=== PATIENT | male | born 1980 | race Caucasian/White ===

== ENCOUNTER 2016-08-01 06:39 | Emergency (ER) | payer OTHER ==
[2016-08-01 06:51] VITALS: TEMP 97.6; BMI 25.0
--- NOTE | 2016-08-01 07:32 | PDOC ---
History of Present Illness - General Chief Complaint: Abscess Boil Stated Complaint: ABSCESS/BUTTOCKS Time Seen by Provider: 08/01/16 07:13 History Source: Patient Exam Limitations: No Limitations - History of Present Illness Initial Comments: 08/01/16 07:23 35-year-old male presents to the emergency room for evaluation of right buttock abscess for the past 4 days. Patient states initially started as a pimple and now has become more red and tender. 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 Timing/Duration: getting worse Severity: mild Associated Symptoms: reports: other Past History - Past Medical History Allergies/Adverse Reactions: Allergies Allergy/AdvReac Type Severity Reaction Status Date / Time No Known Allergies Allergy Verified 08/01/16 06:44 Home Medications: Ambulatory Orders NK [No Known Home Medication] 08/01/16 Anemia: No Asthma: No Cancer: No Cardiac Disorders: No CVA: No COPD: No CHF: No Dementia: No Diabetes: No GI Disorders: No Disorders: No HTN: No Hypercholesterolemia: No Liver Disease: No Suicide Attempt (Hx): No Seizures: No Thyroid Disease: No - Immunization History Immunization Up to Date: Yes - Psycho/Social/Smoking Cessation Hx Anxiety: No Suicidal Ideation: No Smoking History: Current every day smoker Have you smoked in the past 12 months: Yes Number of Cigarettes Smoked Daily: 10 Information on smoking cessation initiated: No 'Breaking Loose' booklet given: 06/02/15 Hx Alcohol Use: Yes (occasional) Drug/Substance Use Hx: No Substance Use Type: None Hx Substance Use Treatment: No Patient Lives Alone: No Lives with/in: spouse/SO Review of Systems - Review of Systems Able to Perform ROS?: Yes Constitutional: No: Symptoms Reported HEENTM: No: Symptoms Reported Respiratory: No: Symptoms reported Cardiac (ROS): No: Symptoms Reported ABD/GI: No: Symptoms Reported Musculoskeletal: No: Symptoms Reported Integumentary: Yes: Erythema, Lumps Neurological: No: Symptoms reported Endocrine: No: Symptoms Reported Hematologic/Lymphatic: No: Symptoms Reported *Physical Exam - Vital Signs Last Vital Signs Temp Pulse Resp BP Pulse Ox 97.6 F 75 18 125/68 100 08/01/16 06:49 08/01/16 06:49 08/01/16 06:49 08/01/16 06:49 08/01/16 06:49 - Physical Exam General Appearance: Yes: Nourished, Appropriately Dressed. No: Apparent Distress Respiratory/Chest: positive: Lungs Clear, Normal Breath Sounds. negative: Respiratory Distress, Accessory Muscle Use Cardiovascular: positive: Regular Rhythm, Regular Rate. negative: Murmur Integumentary: positive: Erythema (with semi-firm area measuring 2 x 3 cm with whitish center without palpable fluctuance) Neurologic: positive: Motor Strength 5/5 (ambulatory) Medical Decision Making - Medical Decision Making 08/01/16 07:26 Patient with right buttock abscess 4 days. On exam patient had no palpable fluctuance or increased warmth. Unable to kiko or perform an I and D . Will order patient on Bactrim and given a prescription for Motrin 600 as per his request . Patient recommended to apply warm soaks. *DC/Admit/Observation/Transfer Diagnosis at time of Disposition: Abscess of right buttock - Discharge Dispostion Disposition: HOME Condition at time of disposition: Good - Patient Instructions Printed Discharge Instructions: DI for Skin Abscess Additional Instructions: I recommend that he apply hot soaks to the affected area 4 times a day for at least 15 minutes. Take antibiotics as prescribed until completed and may take Motrin as needed for discomfort. Do not apply of the topicals or manipulate area. If area begins to drain may cover with a sterile gauze.
[2016-08-01 09:46] VITALS: BP 112/85; PULSE 85
== END 2016-08-01 09:46 | disposition home or self-care (01) ==
LOC: JER 06:39
DX: L02.31 Cutaneous abscess of buttock (principal)
CPT/HCPCS: 99281-25

== ENCOUNTER 2019-09-22 10:18 | Emergency (ER) | payer OTHER ==
--- NOTE | 2019-09-22 10:32 | PDOC ---
Rapid Medical Evaluation Time Seen by Provider: 09/22/19 10:27 Medical Evaluation: Allergies Allergy/AdvReac Type Severity Reaction Status Date / Time No Known Allergies Allergy Verified 09/22/19 10:29 09/22/19 10:31 CC: rt knee swelling and pain with flexion, denies injury or bite/wound to area Exam: notes effusion to rt knee, no increased redness or warmth Plan: xray Discharge Disposition - Diagnosis Knee pain - Referrals - Patient Instructions - Post Discharge Activity
--- NOTE | 2019-09-22 10:57 | PDOC ---
History of Present Illness - General Chief Complaint: Pain, Acute Stated Complaint: RT KNEE INJURY Time Seen by Provider: 09/22/19 10:27 History Source: Patient, Old Records Exam Limitations: No Limitations - History of Present Illness Initial Comments: 09/22/19 10:50 HISTORY OF PRESENT ILLNESS: Patient presents today with c/o right knee pain that started 09/16 while working kneeling on his knees.Reports feeling a stinging in lateral posterior aspect of knee when standing. Reports feeling stiff and swollen and wanted to come in today to see if something was wrong.Reports de creased ability to walk and does not take any other medication except Methadone daily. Denies recent trauma,numbness, tingling.Admits to work that requires frequent kneeling. No recent travel or sick contacts. PAST MEDICAL HISTORY: Reports going to Methadone clinic daily, denies any other history. SURGICAL HISTORY: Denies ALLERGIES: No known drug allergies REVIEW OF SYSTEMS General/Constitutional: Denies fever or chills. Denies weakness, weight change. HEENT: Denies change in vision. Denies ear pain or discharge. Denies sore throat. Cardiovascular: Denies chest pain or shortness of breath. Respiratory: Denies cough, wheezing, or hemoptysis. Gastrointestinal: Denies nausea, vomiting, diarrhea or constipation. Denies rectal bleeding. Genitourinary: Denies dysuria, frequency, or change in urination. Musculoskeletal: Reports joint pain and stiffness to right knee, innability to walk on leg without discomfort Skin: Denies rash or easy bruising. Neurologic: Denies headache, vertigo, loss of consciousness, or loss of sensation. Psychiatric: Denies Endocrine: Denies increased thirst. Denies abnormal weight change. Hematologic/Lymphatic: Denies anemia, easy bleeding, or history of blood clots. Allergic/Immunologic: Denies hives or skin allergy. Denies latex allergy. PHYSICAL EXAM General Appearance: Well-appearing, appropriately dressed. No apparent distress, no intoxication. Vascular Pulses: Dorsalis-Pedis (R): 2+, Dorsalis-Pedis (L): 2+ Musculoskeletal/Extremities: Normal inspection. Normal capillary refill. Pelvis Stable. No CVA tenderness. No tenderness to extremities, pedal edema, swelling, erythema or deformity.Neurovascularly intact. Decreased ROM secondary to pain. Integumentary: Appropriate color, dry, warm. No cyanosis, erythema, jaundice or rash Neurologic: Motor strength 5/5. 09/22/19 10:59 Past History - Medical History Allergies/Adverse Reactions: Allergies Allergy/AdvReac Type Severity Reaction Status Date / Time No Known Allergies Allergy Verified 09/22/19 10:29 Home Medications: Ambulatory Orders Diclofenac Sodium [Voltaren] 100 gm TP TID PRN #1 tube 09/22/19 Anemia: No Asthma: No Cancer: No Cardiac Disorders: No CVA: No COPD: No CHF: No Dementia: No Diabetes: No GI Disorders: No Disorders: No HTN: No Hypercholesterolemia: No Liver Disease: No Seizures: No Thyroid Disease: No - Surgical History Abdominal Surgery: No Appendectomy: No Cardiac Surgery: No Cholecystectomy: No Lung Surgery: No Neurologic Surgery: No Orthopedic Surgery: No - Immunization History Td Vaccination: No TDAP Vaccination: No Immunization Up to Date: No - Psycho-Social/Smoking History Smoking History: Current every day smoker Have you smoked in the past 12 months: No Number of Cigarettes Smoked Daily: 10 Information on smoking cessation initiated: No 'Breaking Loose' booklet given: 06/02/15 - Substance Abuse Hx (Audit-C & DAST Scrn) How often the patient has a drink containing alcohol: Never Score: In Men: 4 or > Positive; In Women: 3 or > Positive: 0 Screen Result (Pos requires Nsg. Audit-10AR): Negative In the last yr the pt used illegal drug/Rx for NonMed reason: No Score: Yes response is considered Positive: 0 Screen Result (Positive result requires Nsg. DAST-10): Negative *Physical Exam - Vital Signs Last Vital Signs Temp Pulse Resp BP Pulse Ox 98.9 F 55 L 20 107/66 100 09/22/19 10:29 09/22/19 10:29 09/22/19 10:29 09/22/19 10:29 09/22/19 10:29 Medical Decision Making - Medical Decision Making 09/22/19 11:26 A/P: 38 y/o male with atraumatic right knee pain for 5 days. No laxity in right knee No erythema, numbness, tingling Lateral suprapatella swelling noted Grimacing noted with ROM Passive range of motion attains greater than 90 degrees. Full extension achieved passively. Limping gait Motrin 600mg po now xray- no acute fractures or dislocations noted drew wrap Discharged with orthopedic follow up Discharge - Discharge Information Problems reviewed: Yes Clinical Impression/Diagnosis: Knee pain Qualifiers: Chronicity: acute Laterality: right Qualified Code(s): M25.561 - Pain in right knee Condition: Stable Disposition: HOME - Admission No - Additional Discharge Information Prescriptions: Diclofenac Sodium [Voltaren] 100 gm TP TID PRN #1 tube PRN Reason: Pain - Follow up/Referral Referrals: Grant Allen DO [Staff Physician] - - Patient Discharge Instructions Additional Instructions: Place ice to affected area no more than 20 minutes at a time.Wait at least 20 minutes before reapplying. Apply Volaran gel as prescribed Apply drew wrap to affected limb Follow up with orthopedics : you have been provided with a number to call. Return to ER for new or worsening symptoms. - Post Discharge Activity Work/Back to School Note: Back to Work
[2019-09-22] MEDS ORDERED: IBUPROFEN 600 MG TABLET (FP) PO ONE ×2 (10:58→11:00)
[2019-09-22 11:05] VITALS: BP 107/66; PULSE 55; TEMP 98.9; BMI 25.1
== END 2019-09-22 11:39 | disposition home or self-care (01) ==
LOC: JERFT 10:18
DX: M25.561 Pain in right knee (principal)
CPT/HCPCS: 73562-TC-RT-FY; 99283-25

== ENCOUNTER 2019-09-29 05:12 | Emergency (ER) | payer OTHER ==
[2019-09-29 05:20] VITALS: BMI 23.6
[2019-09-29] MEDS ORDERED: ACETAMINOPHEN 500 MG TABLET (FP) PO ONE (06:30)
--- NOTE | 2019-09-29 06:32 | PDOC ---
Attending Attestation - Resident Resident Name: Dedra Garcia - ED Attending Attestation I have performed the following: I have examined & evaluated the patient, The case was reviewed & discussed with the resident, I agree w/resident's findings & plan, Exceptions are as noted - HPI HPI: 09/29/19 06:33 38 M with atraumatic R knee pain. Was seen here 1 week ago for same problem. Had XR that was negative. Reports worsening pain and swelling since then. No fevers. No falls or injuries. - Physicial Exam PE: 09/29/19 06:34 See resident exam - Medical Decision Making 09/29/19 06:34 38 M with R knee pain. Large effusion on exam. No fevers to suggest septic arthritis. - Knee arthrocentesis performed, synovial fluid sent to lab Discharge - Discharge Information Problems reviewed: Yes Clinical Impression/Diagnosis: Knee pain, right Qualifiers: Chronicity: acute Qualified Code(s): M25.561 - Pain in right knee Condition: Stable Disposition: HOME - Additional Discharge Information Prescriptions: Naproxen [Naprosyn -] 500 mg PO BID PRN #14 tablet PRN Reason: Pain Level 6-10 - Follow up/Referral Referrals: Ema Cali NP [Primary Care Provider] - Grant Allen DO [Staff Physician] - - Patient Discharge Instructions Patient Printed Discharge Instructions: DI for Knee Pain Additional Instructions: You came into the emergency department knee pain. We took fluid from your knee which was consistent with inflammation. You received your methadone dose while you were here. You can take [id number]-orp-hdvorbf aleve, motrin, or tylenol for pain. Follow the instructions on the medication bottle. We have referred you to an orthopedist. Call and make an appointment as soon as possible to further evaluate your knee. Your workup is not complete until you do so. Immediate medical attention is required if you experience: any focal numbness or weakness, coldness in your limb, or any new or concerning symptoms. If you think you are having an emergency, call for emergency medical services or present to the emergency department right away. - Post Discharge Activity Procedures - Arthrocentesis Indication: Crystals (Gout/Psuedogout, Inflammation, Reduce Pain Arthrocentesis Site: right: knee Flexion: 20-30 degree Betadine Prep: Yes Fluid Color: Yellow Anesthesia: 1% Lidocaine Needle Size (guage): 18g Complications: No
[2019-09-29 06:57] LABS: BASO % 0.4 % (0-2.0); EOS % 3.6 % (0-4.5); HEMATOCRIT 39.5 % (35.4-49); HEMOGLOBIN 12.4 GM/dL (11.7-16.9); LYMPH % 19.1 % (8-40); MCH 23.6 pg (25.7-33.7); MCHC 31.5 g/dl (32.0-35.9); MEAN CELL VOLUME 74.7 fl (80-96); MEAN PLT VOLUME 8.1 fl (7.5-11.1); NEUT % 69.9 % (42.8-82.8); PLATELET COUNT 284 K/MM3 (134-434); RBC 5.28 M/mm3 (4.00-5.60); RDW 14.7 % (11.9-15.9); WHITE BLOOD COUNT 11.6 K/mm3 (4.0-10.0)
--- NOTE | 2019-09-29 07:03 | PDOC ---
History of Present Illness - General Chief Complaint: Chronic pain Stated Complaint: R KNEE SHIPLEY Time Seen by Provider: 09/29/19 05:29 History Source: Patient Exam Limitations: No Limitations - History of Present Illness Initial Comments: 09/29/19 06:59 38y M with PMH of heroin use (inhalation) on methadone presenting to the ER with complaints of R knee pain. Pt has been having this pain for around 1 week, was seen here in the ER with negative xrays. Pt states he has been taking ibuprofen without relief, icing and icy hot does not help. He states that due to the pain he missed going to the methadone clinic for the past 3 days. He states he cannot walk or bend the knee. Denies fever, pain in the back, numbness, weakness, fevers, chest pain, sob, injuries. He states the pain and swelling developed after was kneeling and working on the deck. No penetrative injuries. Allergies: nkda Past History - Medical History Allergies/Adverse Reactions: Allergies Allergy/AdvReac Type Severity Reaction Status Date / Time No Known Allergies Allergy Verified 09/29/19 05:20 Home Medications: Ambulatory Orders Diclofenac Sodium [Voltaren] 100 gm TP TID PRN #1 tube 09/22/19 Anemia: No Asthma: No Cancer: No Cardiac Disorders: No CVA: No COPD: No CHF: No Dementia: No Diabetes: No GI Disorders: No Disorders: No HTN: No Hypercholesterolemia: No Liver Disease: No Seizures: No Thyroid Disease: No - Surgical History Abdominal Surgery: No Appendectomy: No Cardiac Surgery: No Cholecystectomy: No Lung Surgery: No Neurologic Surgery: No Orthopedic Surgery: No - Immunization History Td Vaccination: No TDAP Vaccination: No Immunization Up to Date: No - Psycho-Social/Smoking History Smoking History: Current every day smoker Have you smoked in the past 12 months: Yes Number of Cigarettes Smoked Daily: 5 Information on smoking cessation initiated: No 'Breaking Loose' booklet given: 06/02/15 - Substance Abuse Hx (Audit-C & DAST Scrn) How often the patient has a drink containing alcohol: Monthly or less Number of drinks the patient has on a typical day: 1 or 2 How often the patient has six or more drinks on one occasion: Never Score: In Men: 4 or > Positive; In Women: 3 or > Positive: 1 Screen Result (Pos requires Nsg. Audit-10AR): Negative In the last yr the pt used illegal drug/Rx for NonMed reason: No Score: Yes response is considered Positive: 0 Screen Result (Positive result requires Nsg. DAST-10): Negative Review of Systems - Review of Systems Constitutional: No: Symptoms Reported HEENTM: No: Symptoms Reported Respiratory: No: Symptoms reported Cardiac (ROS): No: Symptoms Reported ABD/GI: No: Symptoms Reported : No: Symptoms Reported Musculoskeletal: Yes: See HPI Integumentary: Yes: See HPI Neurological: No: Symptoms reported *Physical Exam - Vital Signs Last Vital Signs Temp Pulse Resp BP Pulse Ox 98.2 F 55 L 20 120/71 100 09/29/19 05:14 09/29/19 05:14 09/29/19 05:14 09/29/19 05:14 09/29/19 05:14 - Physical Exam General Appearance: Yes: Nourished, Appropriately Dressed. No: Apparent Distress HEENT: positive: EOMI, BRAD Neck: positive: Trachea midline, Supple Respiratory/Chest: positive: Lungs Clear, Normal Breath Sounds Cardiovascular: positive: Regular Rhythm, Regular Rate, S1, S2. negative: Edema, JVD, Murmur Vascular Pulses: Dorsalis-Pedis (R): 2+, Doralis-Pedis (L): 2+ Gastrointestinal/Abdominal: positive: Normal Bowel Sounds, Soft. negative: Tender Musculoskeletal: negative: CVA Tenderness Extremity: positive: Normal Capillary Refill, Swelling (R knee swelling, no erythema or induration, warmth. limited active ROM of knee, able to extend, limited with flexion. ) Integumentary: positive: Normal Color, Dry, Warm. negative: Erythema Neurologic: positive: granular operator II-XII NML intact, Fully Oriented, Alert, Normal Mood/Affect, Normal Response, Motor Strength 5/5 Procedures - Arthrocentesis Indication: Reduce Pain Arthrocentesis Site: right: knee Flexion: 20-30 degree Betadine Prep: Yes Sterile Dressing Applied: No Dry Tap: No Fluid Color: Yellow Anesthesia: 1% Lidocaine Needle Size (guage): 18g Complications: No ED Treatment Course - LABORATORY CBC & Chemistry Diagram: 09/29/19 06:30 09/29/19 06:30 - Medications Given in the ED: ED Medications Discontinued Medications Generic Name Dose Route Start Last Admin Trade Name Freq PRN Reason Stop Dose Admin Acetaminophen 975 mg 09/29/19 06:30 09/29/19 06:41 Tylenol - PO 09/29/19 06:31 Not Given ONCE ONE Medical Decision Making - Medical Decision Making 09/29/19 07:04 38y M presenting with R knee swelling and pain. vitals wnl R knee swelling, no erythema or warmth. do not suspect septic joint. will tap and analyze aspirate. will draw basic labs. refer to procedure note. 70cc of yellow, thick fluid aspirated. pt refusing tylenol stating he is on methadone and needs methadone. will sign out pending labs and synovial aspirate. lab called to make sure they have received sample, stated they will check. 09/29/19 07:06 Discharge - Discharge Information Problems reviewed: Yes Clinical Impression/Diagnosis: Knee pain, right Qualifiers: Chronicity: acute Qualified Code(s): M25.561 - Pain in right knee Condition: Fair - Follow up/Referral Referrals: Ema Cali CHIEF HYDROELECTRIC STATION OPERATOR [Primary Care Provider] - - Patient Discharge Instructions - Post Discharge Activity
[2019-09-29 07:23] LABS: ALBUMIN 3.5 g/dl (3.4-5.0); BILIRUBIN,TOTAL 0.3 mg/dL (0.2-1); BLOOD UREA NITROGEN 10.8 mg/dL (7-18); CALCIUM 8.5 mg/dL (8.5-10.1); CREATININE 0.6 mg/dL (0.55-1.3); POTASSIUM 4.3 mmol/L (3.5-5.1)
[2019-09-29] MEDS ORDERED: KETOROLAC TROMETHAMINE 30 MG/1 ML VIAL IM ONE ×2 (07:32→08:49)
--- NOTE | 2019-09-29 07:37 | PDOC ---
*Physical Exam - Vital Signs Last Vital Signs Temp Pulse Resp BP Pulse Ox 98.2 F 55 L 20 120/71 100 09/29/19 05:14 09/29/19 05:14 09/29/19 05:14 09/29/19 05:14 09/29/19 05:14 ED Treatment Course - LABORATORY CBC & Chemistry Diagram: 09/29/19 06:30 09/29/19 06:30 - ADDITIONAL ORDERS Additional order review: Laboratory Results 09/29/19 06:30 Sodium 138 Potassium 4.3 Chloride 104 Carbon Dioxide 26 Anion Gap 8 BUN 10.8 Creatinine 0.6 Est GFR (CKD-EPI)AfAm 147.82 Est GFR (CKD-EPI)NonAf 127.55 Random Glucose 102 Calcium 8.5 Total Bilirubin 0.3 AST 12 L ALT 21 Alkaline Phosphatase 98 C-Reactive Protein 3.9 H Total Protein 7.0 Albumin 3.5 - Medications Given in the ED: ED Medications Discontinued Medications Generic Name Dose Route Start Last Admin Trade Name Freq PRN Reason Stop Dose Admin Acetaminophen 975 mg 09/29/19 06:30 09/29/19 06:41 Tylenol - PO 09/29/19 06:31 Not Given ONCE ONE Medical Decision Making - Medical Decision Making Patient signed out by Dr. Garcia 38y M with PMH of heroin use (inhalation) on methadone presenting to the ER with complaints of R knee pain. CMP Sodium 138 mmol/L (136-145) 09/29/19 06:30 Potassium 4.3 mmol/L (3.5-5.1) 09/29/19 06:30 Chloride 104 mmol/L (98-107) 09/29/19 06:30 Carbon Dioxide 26 mmol/L (21-32) 09/29/19 06:30 Anion Gap 8 MMOL/L (8-16) 09/29/19 06:30 BUN 10.8 mg/dL (7-18) 09/29/19 06:30 Creatinine 0.6 mg/dL (0.55-1.3) 09/29/19 06:30 Est GFR (CKD-EPI)AfAm 147.82 09/29/19 06:30 Est GFR (CKD-EPI)NonAf 127.55 09/29/19 06:30 Random Glucose 102 mg/dL (74-106) 09/29/19 06:30 Calcium 8.5 mg/dL (8.5-10.1) 09/29/19 06:30 Total Bilirubin 0.3 mg/dL (0.2-1) 09/29/19 06:30 AST 12 U/L (15-37) L 09/29/19 06:30 ALT 21 U/L (13-61) 09/29/19 06:30 Alkaline Phosphatase 98 U/L (45-117) 09/29/19 06:30 C-Reactive Protein 3.9 MG/DL (0.00-0.3) H 09/29/19 06:30 Total Protein 7.0 g/dl (6.4-8.2) 09/29/19 06:30 Albumin 3.5 g/dl (3.4-5.0) 09/29/19 06:30 Electrolytes unremarkable Normal Cr CRP elevated Pending synovial fluid analysis Patient refused toradol IM, stating he wants methadone Willing to wait for labs, but may decide to leave 09/29/19 07:36 CBC WBC 11.6 K/mm3 (4.0-10.0) H 09/29/19 06:30 RBC 5.28 M/mm3 (4.00-5.60) 09/29/19 06:30 Hgb 12.4 GM/dL (11.7-16.9) 09/29/19 06:30 Hct 39.5 % (35.4-49) 09/29/19 06:30 MCV 74.7 fl (80-96) L 09/29/19 06:30 MCH 23.6 pg (25.7-33.7) L 09/29/19 06:30 MCHC 31.5 g/dl (32.0-35.9) L 09/29/19 06:30 RDW 14.7 % (11.9-15.9) 09/29/19 06:30 Plt Count 284 K/MM3 (134-434) D 09/29/19 06:30 MPV 8.1 fl (7.5-11.1) D 09/29/19 06:30 Absolute Neuts (auto) 8.1 K/mm3 (1.5-8.0) H 09/29/19 06:30 Neutrophils % 69.9 % (42.8-82.8) D 09/29/19 06:30 Lymphocytes % 19.1 % (8-40) D 09/29/19 06:30 Monocytes % 7.0 % (3.8-10.2) 09/29/19 06:30 Eosinophils % 3.6 % (0-4.5) 09/29/19 06:30 Basophils % 0.4 % (0-2.0) 09/29/19 06:30 Nucleated RBC % 0 % (0-0) 09/29/19 06:30 Mild leukocytosis No anemia 09/29/19 08:12 per lab, synovial fluid ready around 10am The patient understands the risks and complications that may result from the refusal of medical care and admission which includes and permanent disability. The patient has the mental capacity of understanding the risks of refusing care and is capable of making an informed decision. Signed AMA form 09/29/19 08:49 Patient changed his mind about leaving AMA Now requesting toradol, ordered Call to patient's methadone clinic, No answer; Left a voicemail 09/29/19 09:08 Called [facility] outpatient detox, Confirmed patient's dose of methadone, 90mg Made staff aware that patient would be provided today's dose here Ordered 09/29/19 09:13 Laboratory Tests 09/29/19 09/29/19 06:36 06:36 Fluid Source Right knee Fluid WBC 58653 Fluid RBC 2862 Fluid Neutrophils Pending Synovial Crystals Pending Synovial fluid analysis consistent with inflammatory process Low suspicion for septic joint 09/29/19 10:19 Able to ambulate with antalgic gait Crutches given for pain Ortho referral Naprosyn sent to pharmacy Return precautions Patient discharged Discharge - Discharge Information Problems reviewed: Yes Clinical Impression/Diagnosis: Knee pain, right Qualifiers: Chronicity: acute Qualified Code(s): M25.561 - Pain in right knee Condition: Stable Disposition: HOME - Additional Discharge Information Prescriptions: Naproxen [Naprosyn -] 500 mg PO BID PRN #14 tablet PRN Reason: Pain Level 6-10 - Follow up/Referral Referrals: Ema Cali PAD TUFTER [Primary Care Provider] - Grant Allen DO [Staff Physician] - - Patient Discharge Instructions Patient Printed Discharge Instructions: DI for Knee Pain Additional Instructions: You came into the emergency department knee pain. We took fluid from your knee which was consistent with inflammation. You received your methadone dose while you were here. You can take [id number]-[id number]-lzdkyee aleve, motrin, or tylenol for pain. Follow the instructions on the medication bottle. We have referred you to an orthopedist. Call and make an appointment as soon as possible to further evaluate your knee. Your workup is not complete until you do so. Immediate medical attention is required if you experience: any focal numbness or weakness, coldness in your limb, or any new or concerning symptoms. If you think you are having an emergency, call for emergency medical services or present to the emergency department right away. - Post Discharge Activity
[2019-09-29] MEDS ORDERED: KETOROLAC TROMETHAMINE 30 MG/1 ML VIAL ONE (08:47)
[2019-09-29 09:01] LABS: ERYTHROCYTE SEDIMENTATION RATE 19 mm/hr (0-10)
[2019-09-29] MEDS ORDERED: METHADONE HCL 10 MG TABLET (FOR DETOX USE ONLY) PO ONE (09:13)
[2019-09-29] MEDS ORDERED: METHADONE HCL 10 MG TABLET ONE (09:18)
[2019-09-29] MEDS ORDERED: METHADONE HCL 40 MG DISPERSABLE TABLET ONE (09:19)
[2019-09-29 09:37] LABS: BF WBC & OTHER NUCLEATED CELLS 24908 /mm3
[2019-09-29 10:32] VITALS: BP 121/72; PULSE 77; TEMP 98
[2019-09-29 13:14] LABS: BODY FLUID MACROPHAGES 2 %; BODY FLUID MONOCYTE 2 %
== END 2019-09-29 10:45 | disposition home or self-care (01) ==
LOC: JER 05:12
PROC: 3E023GC Introduction of Other Therapeutic Substance into Muscle, Percutaneous Approach (ICD-10-PCS; principal; 2019-09-29)
PROC: 0S9C3ZZ Drainage of Right Knee Joint, Percutaneous Approach (ICD-10-PCS; principal; 2019-09-29)
DX: M25.561 Pain in right knee (principal)
CPT/HCPCS: 36415; 80053; 85025; 85651; 86140; 87070; 87075; 87205; 89060; 99284-25

== ENCOUNTER 2019-10-03 13:43 | Emergency (ER) | payer OTHER ==
[2019-10-03 13:51] VITALS: BP 107/65; PULSE 95; TEMP 98.3; BMI 23.6
[2019-10-03] MEDS ORDERED: KETOROLAC TROMETHAMINE 30 MG/1 ML VIAL IVPUSH ONE (14:15)
--- NOTE | 2019-10-03 14:27 | PDOC ---
History of Present Illness - General Chief Complaint: Pain Stated Complaint: KNEE PAIN Time Seen by Provider: 10/03/19 13:59 History Source: Patient Exam Limitations: No Limitations - History of Present Illness Initial Comments: 10/03/19 14:22 38-year-old male past medical history hep C heroin abuse on methadone presenting to the ED complaining of right knee pain. Patient was seen here on 2 separate visits where he was worked up for septic joint. Arthrocentesis was performed on his right knee results show a white blood cell count of 25,000 with a negative Gram stain without crystals. Patient returns today for worsening inflammation and pain of the right knee. Patient states that symptoms have been getting progressively worse since September 16 patient has not followed up with orthopedics as directed but has been taking NSAIDs with only minimal relief. Patient now complains of decreased ROM secondary to pain as well as new onset of swelling in the right ankle. pt otherwise denies: fevers, chills, syncope, lightheadedness, dizziness, headaches, neck pain, chest pain, shortness of breath, palpitations, back pain, abdominal pain, nausea, vomiting, diarrhea, constipation. Past History - Medical History Allergies/Adverse Reactions: Allergies Allergy/AdvReac Type Severity Reaction Status Date / Time No Known Allergies Allergy Verified 10/03/19 13:48 Home Medications: Ambulatory Orders Diclofenac Sodium [Voltaren] 100 gm TP TID PRN #1 tube 09/22/19 Naproxen [Naprosyn -] 500 mg PO BID PRN #14 tablet 09/29/19 Clindamycin [Cleocin -] 300 mg PO Q6HPO #28 capsule 10/03/19 Anemia: No Asthma: No Cancer: No Cardiac Disorders: No CVA: No COPD: No CHF: No Dementia: No Diabetes: No GI Disorders: No Disorders: No HTN: No Hypercholesterolemia: No Liver Disease: No Seizures: No Thyroid Disease: No - Surgical History Abdominal Surgery: No Appendectomy: No Cardiac Surgery: No Cholecystectomy: No Lung Surgery: No Neurologic Surgery: No Orthopedic Surgery: No - Immunization History Td Vaccination: No TDAP Vaccination: No Immunization Up to Date: No - Psycho-Social/Smoking History Smoking History: Never smoked Have you smoked in the past 12 months: Yes Number of Cigarettes Smoked Daily: 5 'Breaking Loose' booklet given: 06/02/15 - Substance Abuse Hx (Audit-C & DAST Scrn) How often the patient has a drink containing alcohol: 2-4 times / month How often the patient has six or more drinks on one occasion: Less than monthly Score: In Men: 4 or > Positive; In Women: 3 or > Positive: 3 Screen Result (Pos requires Nsg. Audit-10AR): Negative In the last yr the pt used illegal drug/Rx for NonMed reason: No Score: Yes response is considered Positive: 0 Screen Result (Positive result requires Nsg. DAST-10): Negative Review of Systems - Review of Systems Constitutional: No: Chills, Fever HEENTM: No: Eye Pain Respiratory: No: Shortness of Breath Cardiac (ROS): No: Chest Pain ABD/GI: No: Abdominal Distended : No: Dysuria Musculoskeletal: Yes: Joint Pain, Muscle Pain. No: Gout, Muscle Weakness Integumentary: Yes: Symptoms Reported (edema) Neurological: No: Headache, Numbness *Physical Exam - Vital Signs Last Vital Signs Temp Pulse Resp BP Pulse Ox 98.3 F 95 H 20 107/65 100 10/03/19 13:47 10/03/19 13:47 10/03/19 13:47 10/03/19 13:47 10/03/19 13:47 - Physical Exam 10/03/19 14:25 Gen: AAOx 3, no acute distress, comfortable, no signs of respiratory distress HENT: atraumatic, normocephalic with no laceration or contusion. Nasal mucosa without erythema. Oropharynx without erythema or exudates. Mucous membranes moist. EYES: PERRL, EOM intact, conjunctiva pink NECK: supple; trachea midline; no JVD, no lymphadenopathy, or thyromegaly CV: RRR no murmurs, gallops, or rubs. CHEST: CTA b/l no wheezing, rales or rhonchi ABD: +BS/ND. no TTP; soft, no rebound, no guarding EXTREMITY: no cyanosis or erythema. 2+ dorsalis pedis, posterior tibial, and radial pulse. No pedal edema; no calf swelling or tenderness SKIN: no rash, warm and dry, no diaphoresis HEME: no purpura or ecchymosis NEURO: normal speech, CN II-XII intact, sensation intact, normal gait, no cerebellar deficits MS: 5/5 strength in all extremities, FROM intact in all extremities except RLE RLE: swelling with warmth no erythema but ttp to suprapatella region on the knee, unable to ROM knee 2/2 pain, 2+ distal pulses, sensation intact, swelling to the medial mallous with warmth, no erythema ankle FROM ED Treatment Course - LABORATORY CBC & Chemistry Diagram: 10/03/19 15:00 10/03/19 15:00 - RADIOLOGY Radiology Studies Ordered: Category Date Time Status KNEE 3 POS-RIGHT [RAD] Stat Radiology 10/03/19 14:13 Ordered Medical Decision Making - Medical Decision Making 10/03/19 14:49 38-year-old male presenting with right knee swelling worsening over the course of 2 weeks negative Gram stain but white blood cell count of arthrocentesis showed 25,000 Vital signs stable afebrile We will obtain CBC CMP ESR CRP x-ray knee Will repeat arthrocentesis and send Gram stain and culture to lab Will reassess based on results Laboratory Tests 10/03/19 10/03/19 15:00 15:00 WBC 9.6 Hgb 11.0 L Hct 33.7 L ESR 85 H C-Reactive Protein 18.7 H XR shows large suprapatella effusion Arthrocentesis of knee preformed by resident physicians, 120mL removed, cloudy in appeared, new gram stain and WBC eval sent to lab. Although patient's white blood cell count is not elevated there is an increased in ESR and CRP which are indicative of potential for septic joint, joint decision was made with Dr. LINDSAY to admit patient for IV antibiotics and for further management of septic joint orthopedics to be consulted. Pt is requesting to to leave AGAINST MEDICAL ADVICE after dosing of antibiotics due to "things to do at home" I explained the risks of leaving the hospital AGAINST MEDICAL ADVICE as well as worsening infection that could lead to loss of limb and life. Pt is AOx 3 and has full decision making capacity. Pt is informed of the benefits of staying for evaluation/treatment and the risks of leaving AMA, including worsening of symptoms, permanent diasbility, and . Pt understands and would still like to leave AMA. Although patient decided to leave AMA he was agreeable to receive 2 doses of IV antibiotics in the ED prior to departure. Nurse informed me that patient eloped from the ED with IV still in place she then proceeded to exit the ED to search for patient and found patient walking towards bus stop she notified security who returned patient to the ED patient is now stating he will receive IV antibiotics which will be administered in the ED with security on a one-to-one with patient to ensure he does not elope with IV in. Patient's IV to be removed prior to departure. Pt only agreed to recieve one dose of abx and received ceftriaxone 250 IVP Prescription for clindamycin was sent to patient's pharmacy and patient was informed to return to the ED immediately for worsening symptoms as well as to see his PCP and orthopedics without fail patient is aware of the risk he is taking by leaving the ED and understands that he could . Discharge - Discharge Information Problems reviewed: Yes Clinical Impression/Diagnosis: Septic joint Qualifiers: Septic arthritis location: knee Septic arthritis organism: due to unspecified organism Laterality: right Qualified Code(s): M00.9 - Pyogenic arthritis, unspecified Condition: Fair Disposition: AGAINST MEDICAL ADVICE - Additional Discharge Information Prescriptions: Clindamycin [Cleocin -] 300 mg PO Q6HPO #28 capsule - Follow up/Referral Referrals: Ema Cali CHANGE CONTROL ANALYST [Primary Care Provider] - - Patient Discharge Instructions - Post Discharge Activity
[2019-10-03] MEDS ORDERED: KETOROLAC TROMETHAMINE 30 MG/1 ML VIAL ONE (15:08)
[2019-10-03 15:14] LABS: BASO % 0.7 % (0-2.0); EOS % 3.7 % (0-4.5); HEMATOCRIT 33.7 % (35.4-49); LYMPH % 15.2 % (8-40); MCH 24.4 pg (25.7-33.7); MCHC 32.5 g/dl (32.0-35.9); MEAN CELL VOLUME 75.2 fl (80-96); MEAN PLT VOLUME 7.7 fl (7.5-11.1); MONO % 10.1 % (3.8-10.2); NEUT % 70.3 % (42.8-82.8); PLATELET COUNT 298 K/MM3 (134-434); RBC 4.49 M/mm3 (4.00-5.60); RDW 14.1 % (11.9-15.9); WHITE BLOOD COUNT 9.6 K/mm3 (4.0-10.0)
[2019-10-03] MEDS ORDERED: LIDOCAINE 1%/EPI 1:100000 (20 ML MULTI DOSE VIAL) ONE (15:17)
[2019-10-03] MEDS ORDERED: LIDOCAINE 1%/EPI 1:100000 (50 ML MULTI DOSE VIAL) INF ONE (15:17)
[2019-10-03 15:21] LABS: INR 1.08 (0.83-1.09); PROTHROMBIN TIME (PATIENT) 12.7 SEC (9.7-13.0)
[2019-10-03 15:24] LABS: ACTIVATED PTT 35.7 SECONDS (25.2-36.5)
[2019-10-03] MEDS ORDERED: VANCOMYCIN HCL 1,500 MG in DEXTROSE 5%-WATER - 500 ML IVPB ONE (15:41)
[2019-10-03] MEDS ORDERED: CEFTRIAXONE 250 MG in DEXTROSE 5%-WATER - 50 ML IVPUSH ONE (15:42)
[2019-10-03 15:46] LABS: ALBUMIN 3.3 g/dl (3.4-5.0); BILIRUBIN,TOTAL 0.4 mg/dL (0.2-1); BLOOD UREA NITROGEN 9.1 mg/dL (7-18); CALCIUM 8.3 mg/dL (8.5-10.1); CREATININE 0.6 mg/dL (0.55-1.3); POTASSIUM 4.3 mmol/L (3.5-5.1)
[2019-10-03 15:58] LABS: ERYTHROCYTE SEDIMENTATION RATE 85 mm/hr (0-10)
== END 2019-10-03 16:35 | disposition left against medical advice (07) ==
LOC: JER 13:43
PROC: 3E03329 Introduction of Other Anti-infective into Peripheral Vein, Percutaneous Approach (ICD-10-PCS; principal; 2019-10-03)
PROC: 3E033GC Introduction of Other Therapeutic Substance into Peripheral Vein, Percutaneous Approach (ICD-10-PCS; 2019-10-03)
DX: M00.9 Pyogenic arthritis, unspecified (principal)
CPT/HCPCS: 36415; 73562-TC-RT-FY; 80053; 85025; 85610; 85651; 85730; 86140; 87070; 87075; 87186; 87205; 89060; 99285-25

== ENCOUNTER 2020-10-19 09:32 | Emergency (ER) | payer OTHER ==
[2020-10-19 09:43] VITALS: BP 117/72; PULSE 83; TEMP 98.1; BMI 25.8
[2020-10-19] MEDS ORDERED: LIDOCAINE HCL 1%, 10 MG/ML (50 mL VIAL) INF ONE (10:38)
[2020-10-19] MEDS ORDERED: LIDOCAINE HCL 1%, 10 MG/ML (20ML VIAL) ONE (10:40)
[2020-10-19] MEDS ORDERED: DALBAVANCIN HCL 1,500 MG in DEXTROSE 5%-WATER - 500 ML IVPB ONE (10:43)
[2020-10-19] MEDS ORDERED: DALBAVANCIN HCL 500 MG VIAL (RESTRICTED TO ID ONLY) IVPB ONE ×2 (11:44→11:54)
[2020-10-19 12:00] LABS: BASO % 0.2 % (0-2.0); EOS % 1.3 % (0-4.5); HEMATOCRIT 34.2 % (35.4-49); HEMOGLOBIN 11.2 GM/dL (11.7-16.9); LYMPH % 13.2 % (8-40); MCH 23.4 pg (25.7-33.7); MCHC 32.8 g/dl (32.0-35.9); MEAN CELL VOLUME 71.3 fl (80-96); MEAN PLT VOLUME 7.7 fl (7.5-11.1); MONO % 8.3 % (3.8-10.2); PLATELET COUNT 278 10^3/uL (134-434); RDW 15.2 % (11.9-15.9); WHITE BLOOD COUNT 12.6 K/mm3 (4.0-10.0)
[2020-10-19 12:10] LABS: INR 1.09 (0.83-1.09); PROTHROMBIN TIME (PATIENT) 13.2 SEC (9.7-13.0)
[2020-10-19 12:27] LABS: CALCIUM 8.3 mg/dL (8.5-10.1)
[2020-10-19 12:28] LABS: ALBUMIN 3.4 g/dl (3.4-5.0); BLOOD UREA NITROGEN 8.2 mg/dL (7-18)
[2020-10-19 12:31] LABS: CREATININE 0.5 mg/dL (0.55-1.3)
[2020-10-19 12:32] LABS: BILIRUBIN,TOTAL 0.6 mg/dL (0.2-1); TOT PROT 7.5 g/dl (6.4-8.2)
== END 2020-10-19 13:21 | disposition left against medical advice (07) ==
LOC: JER 09:32 → JERFT 09:32 → JER 13:20
PROC: 0H9CXZZ Drainage of Left Upper Arm Skin, External Approach (ICD-10-PCS; principal; 2020-10-19)
PROC: 3E03329 Introduction of Other Anti-infective into Peripheral Vein, Percutaneous Approach (ICD-10-PCS; 2020-10-19)
DX: L02.414 Cutaneous abscess of left upper limb (principal)
CPT/HCPCS: 36415; 73090-TC-LT-FY; 80053; 83605; 85025; 85610; 86850; 86900; 86901; 87040; 87070; 87186; 87205; 93005; 93010; 99285-25; J0875